=== PATIENT | male | born 1960 | race Caucasian/White ===

== ENCOUNTER 2021-11-14 07:55 | Outpatient (CLI) | payer BC, SELFPAY ==
--- NOTE | ~2021-11-14 | US_ITS ---
US abdomen complete DATE: 11/14/2021 08:35 INDICATION: Abnormal transaminases TECHNIQUE: Real-time imaging of the abdomen, Doppler analysis COMPARISON: 06/02/2018 CT abdomen FINDINGS: There is hepatic steatosis. No hepatic space-occupying mass lesion is detected. Pancreatic calcifications, consistent with chronic pancreatitis. No gallstones or gallbladder wall thickening or pericholecystic fluid is evident. The common bile moustapha t measures 5 mm, within normal range. Normal splenic size. Normal caliber of the abdominal aorta. Inferior vena cava is unremarkable. No renal mass lesion or hy dronephrosis. IMPRESSION: Hepatic steatosis Chronic pancreatitis Reviewed, dictated and finalized at [facility]. Reviewed, dictated and finalized at [facility].
== END 2021-11-14 07:56 ==
PROVIDERS: PCP Internal Medicine; Visit Provider Physician Assistant
DX: R74.8 Abnormal levels of other serum enzymes (principal); K76.0 Fatty (change of) liver, not elsewhere classified; K86.1 Other chronic pancreatitis
CPT/HCPCS: 76700